=== PATIENT | female | born 1945 | race Caucasian/White ===

== ENCOUNTER 2024-11-29 10:50 | Emergency (ER) | payer SELFPAY ==
[2024-11-29 10:56] VITALS: BP 174/69; PULSE 59; RESP 19; O2SAT 96
[2024-11-29] MEDS: DEXTROSE 50%-WATER INJ 50 ML SYRINGE IV (10:56)
--- NOTE | 2024-11-29 11:15 | XR_ITS ---
Examination: AP chest single view Technique one AP portable semiupright chest single view Exam date and time: November 29, 2024 1116 hours INDICATIONS: Shortness of breath chest pain coughing beginning one week ago. FINDINGS: Minimal opacity left base laterally Normal heart size Moderate osteopenia IMPRESSION: Suspicious for early left base pneumonia
--- NOTE | 2024-11-29 11:22 | PD.EDAMS ---
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 reports this morning bs was 60 and patient did not have any breakfast. On arrival to ED patient initially was unable to provide any history. BS 44 and was given D50 with improvement in mentation. Patient reports she does not know why her sugar dropped and denied taking any extra dose of her medication. States she had a routine check-up with PCP scheduled today, otherwise has not felt ill in any other way. Denies fevers, chills, cough, sweats, abdominal pain, n/v/d, or urinary symptoms. Related Data Previous Rx's ?Medication ?Instructions ?Recorded cephalexin 500 mg capsule 500 mg PO BID #6 caps 11/29/24 Review of Systems Review of Systems ROS Unobtainable: unobtainable due to mental status (Initially unobtainable ) Past Medical History Past Medical History CARDIAC: Positive Hypertension ENDOCRINE: Positive Diabetes Mellitus Type 2 Social History SMOKING STATUS: Unknown if ever smoked ED Exam Narrative Physical exam: GENERAL APPEARANCE: AxOx to person only, no obvious distress, nontoxic appearing HEENT: NC, AT. MMM. EOMI, clear conjunctiva, oropharynx clear. NECK: Supple without lymphadenopathy. No stiffness or restricted ROM. HEART: Normal rate and regular rhythm, normal S1/S1, no m/r/g LUNGS: CTAB, moving air well. No crackles or wheezes are heard. ABDOMEN: Soft, nontender, nondistended with good bowel sounds heard. BACK: No midline C/T/L spine pain or deformity, No CVAT, no obvious deformity. EXTREMITIES: Without cyanosis, clubbing or edema. MUSCULOSKELETAL: FROM of all major joints, no chest tenderness NEUROLOGICAL: Grossly nonfocal. Alert and oriented to person, moving all 4 extremities. CN not formally tested but appear grossly intact. Skin: Warm and dry without any rash. Course Quality Measures none Orders Category Date Time Status Bedside Blood Glucose NOW Care 11/29/24 13:09 Active Bedside Blood Glucose Q1HR Care 11/29/24 11:03 Active Bedside COVID-19 Antigen Test NOW Care 11/29/24 11:15 Active Bedside Influenza A&B Antigen Test NOW Care 11/29/24 11:15 Completed In and Out Catheter X1 Care 11/29/24 11:10 Active XR chest 1V Stat Exams 11/29/24 11:15 Completed CBC Stat Lab 11/29/24 11:00 Completed Comprehensive Metabolic Panel Stat Lab 11/29/24 11:00 Completed Urinalysis Stat Lab 11/29/24 12:20 Completed Dextrose 50% Syr [D50w Syringe Abboject] Med 11/29/24 10:52 Discontinued 50 ml IV X1 ONE cefTRIAXone [Rocephin] 1,000 mg Med 11/29/24 13:08 Discontinued Lidocaine 1% 20 ml [Xylocaine 1% 20 ML] 2.1 ml IM X1 Reevaluation(s) Reevaluation #1: Patient remains clinically stable. We reviewed all the results, analysis, and treatment plans. Patient is amenable to discharge. Strict return precautions were outlined. Patient was discharged in stable condition. Time: 13:13 Vital Signs Vital signs: Vital Signs Pulse Rate 59 L 11/29/24 10:56 Respiratory Rate 19 11/29/24 10:56 Blood Pressure 174/69 H 11/29/24 10:56 Pulse Oximetry (%) 96 11/29/24 10:56 Oxygen Delivery Method Room Air 11/29/24 10:56 Pulse ox is 96% on room air which is adequate. Altered Mental Status MDM Narrative MDM Narrative:: Rachel Peck am scribing for and in the presence of Dr. Johnson. Patient data External records reviewed:: [facility] previous records (Per EMR review, patient has no previous visits. ) Clinical information provided by:: patient and spouse Social determinants that could affect healthcare access:: none Patient has the following chronic illnesses:: Hypertension, diabetes, hyperlipidemia How is presenting disease/condition affected by chronic disease/condition?: exacerbated by Evaluation data The following diagnostics were reviewed and interpreted by me:: lab results and radiology exam(s) Lab and/or radiology exams considered but not ordered:: None Interpretation Summary: Ordering Physician: Cholo Johnson MD Date of Service: 11/29/24 Procedure(s): XR chest 1V Accession Number(s): [id number] cc: Cholo Johnson MD; Kolton Guzman MD~ Examination: AP chest single view Technique one AP portable semiupright chest single view Exam date and time: November 29, 2024 1116 hours INDICATIONS: Shortness of breath chest pain coughing beginning one week ago. FINDINGS: Minimal opacity left base laterally Normal heart size Moderate osteopenia IMPRESSION: Suspicious for early left base pneumonia Dictated By: Kolton Guzman MD Signed By: <Electronically signed by Kolton Guzman MD in OV> 11/29/24 1148 Medications / Prescriptions Medications or Prescriptions considered but not ordered:: None Medication administrations:: Medication Administration History Discontinued Medications Ceftriaxone Sodium 1,000 mg/ (Lidocaine HCl 2.1 ml) 0 mg IM X1 ONE Stop: 11/29/24 13:09 Dextrose (Dextrose 50%-Water Inj 50 Ml Syringe) 50 ml IV X1 ONE Stop: 11/29/24 10:53 Last Admin: 11/29/24 10:56 Dose: 50 ml Documented By: CS See above Consultations Consultation(s) initiated? (list below): No Diagnosis Differential diagnosis altered mental status: altered mental status, hypoglycemia, hyponatremia, sepsis and other (dehydration ) Most likely diagnosis given after review of the tests above:: Acute UTI Hypoglycemia Admission Indicated Admission indicated?: not indicated Admission Request Was there a request for admission?: No Disposition Plan Disposition Plan: Discharge Discharge Attestation Discharge Attestation: The patient and all family members were given an opportunity to ask questions and understood the discharge instructions. Discharge instructions specifically effects, indications for sooner follow up or return to the emergency department, and the expected course of current diagnosis. Patient condition: Stable Discharge Plan Plan Patient Disposition: HOME (Self Care) Prescriptions/Referrals Prescriptions/Med Rec: New cephalexin 500 mg capsule 500 mg PO BID Qty: 6 0RF Problem List Clinical Impression: Acute UTI, Hypoglycemia Patient/Caregiver Discharge Instructions Education Materials: ED Hypoglycemia Oral Diabetic ..., ED CYSTITIS Female Adult Additional Instructions: Josué un seguimiento con lorenzo m?dico de atenci?n primaria en 2 a 3 d?as para volver a controlarlo. Puede regresar al departamento de emergencias carty pronto dany los s?ntomas empeoren o si nota alg?n problema nuevo y preocupante. Print Language: Vietnamese Stand Alone Forms: Gem Award Info., Patient Portal Info Letter
[2024-11-29 11:28] LABS: Basophils # (Auto) 0.1 Thou/mm3 (0.0-0.2); Basophils % (Auto) 1 % (0-2.5); Eosinophils # (Auto) 0.2 Thou/mm3 (0.0-0.5); Eosinophils % (Auto) 1 % (0-10); Hematocrit 38.3 % (36.0-46.0); Hemoglobin 12.6 g/dL (12.0-16.0); Immature Granulocytes % (Auto) 0 % (0-0); Immature Granulocytes Auto 0.05 Thou/mm3 (0.00-0.00); Lymphocytes # (Auto) 3.4 Thou/mm3 (1.0-4.8); Lymphocytes % (Auto) 21 % (10-50); Mean Corpuscular HGB Conc 32.9 g/dl (31.0-37.0); Mean Corpuscular Hemoglobin 27.8 pg (25.0-35.0); Mean Corpuscular Volume 84 fL (80-100); Monocytes # (Auto) 1.1 Thou/mm3 (0.0-0.8); Monocytes % (Auto) 7 % (0-12); Neutrophils # (Auto) 11.1 Thou/mm3 (1.8-7.7); Neutrophils % (Auto) 70 % (37-80); Nucleated Red Blood Cell % 0 /100 WBC (0); Platelet Count 275 Thou/mm3 (140-440); RDW Standard Deviation 46.1 fL (36.4-46.3); Red Blood Count 4.54 Miln/mm3 (4.00-5.20); White Blood Count 15.9 Thou/mm3 (3.6-11.0)
[2024-11-29 11:40] VITALS: BP 190/75; PULSE 70; RESP 18; TEMP 37; O2SAT 98
[2024-11-29 11:40] LABS: Alanine Aminotransferase 14 U/L (10-49); Albumin, Serum 4.1 gm/dL (3.4-4.8); Albumin/Globulin Ratio 1.9 (1.2-2.2); Alkaline Phosphatase 68 U/L (46-116); Anion Gap 7 (7-16); Aspartate Amino Transferase 16 U/L (0-34); BUN/Creatinine Ratio 39 Ratio (12-20); Bilirubin,Total 0.3 mg/dL (0.3-1.2); Blood Urea Nitrogen 39 mg/dL (9-23); Calcium 9.5 mg/dL (8.3-10.6); Calcium (Corrected) 9.5 mg/dL (8.5-10.1); Carbon Dioxide 24.3 mMol/L (20.0-31.0); Chloride 109 mMol/L (98-107); Globulin 2.2 gm/dL (2.3-3.5); Glucose 260 mg/dL (74-106); Osmolality,Calculated 297 (275-295); Potassium 4.5 mMol/L (3.4-5.1); Sodium 140 mMol/L (136-145); Total Protein 6.3 gm/dL (5.7-8.2); eGFR 58 See Note
[2024-11-29 12:40] LABS: Collection Type, Urine Catheter; Squamous Epithelial Cell,Urine 0 /hpf (0-5)
[2024-11-29 12:56] LABS: Bacteria,Urine Rare; Bilirubin,Urine Negative (Negative); Blood,Urine Negative (Negative); Clarity,Urine Turbid (Clear/Hazy); Color,Urine Lt-Yellow (Lt Yel-Yel); Glucose, Urine 3+ (Negative); Ketones,Urine Negative (Negative); Leukocyte Esterase,Urine Positive (Negative); Nitrite,Urine Negative (Negative); Protein,Urine Trace (Neg - Trace); RBC,Urine 9 /hpf (0-3); Urobilinogen,Urine Negative mg/dL (0.0-1.0); WBC,Urine 379 /hpf (0-5)
[2024-11-29] MEDS: cefTRIAXone 1,000 MG, LIDOCAINE 1% 20 ML 2.1 ML IM (13:45)
[2024-11-29 13:55] VITALS: BP 180/62; PULSE 67; RESP 17; TEMP 36.9; O2SAT 98
== END 2024-11-29 14:12 | disposition home or self-care (01) ==
PROVIDERS: Emergency Provider Emergency Medicine
DX: N39.0 Urinary tract infection, site not specified (principal); E11.649 Type 2 diabetes mellitus with hypoglycemia without coma; I10 Essential (primary) hypertension; E78.5 Hyperlipidemia, unspecified
CPT/HCPCS: 36415; 71045; 80053; 81001; 85025; 87400; 87811; 96372; 99284; J0696; J3490